=== PATIENT | male | born 1960 | race Two or more races ===

== ENCOUNTER 2019-07-19 22:19 | Emergency (ER) | payer BC, OTHER ==
[~2019-07-19] VITALS: Ht 167.6 cm; Wt 66.3 kg
[~2019-07-19 22:19] MED LIST: ABIR250T PO; ALBU90AE PO; AMLO2.5T5 PO; ASPI-650 PO; DENO120V SQ; FURO-92 PO; HYDR4TAB48 PO; LISI-170 PO; MAGN300C PO; METF-649 PO; METO25TA2 PO; OMEP-110 PO; POTA99TA24 PO; PRED5TAB PO; ROSU5TAB PO; SIMV40TA3 PO; SITA100T PO
[2019-07-19 22:21] VITALS: BP 150/85
[2019-07-19] MEDS ORDERED: OXYcodone/APAP 5/325MG TABLET ONE ×2 (22:45→23:27)
--- NOTE | 2019-07-19 22:47 | NUR ---
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
[2019-07-19] MEDS ORDERED: BUPIVACAINE 0.25% ONE (22:57)
[2019-07-19] MEDS ORDERED: LIDOCAINE-MPF 1%, 5ML ONE (22:57)
--- NOTE | 2019-07-19 22:58 | NUR ---
MEDS PULLED FOR PROVIDER ADMIN
[2019-07-19] MEDS ORDERED: OXYcodone/APAP 5/325MG TABLET PO ONE ×2 (23:00→23:30)
[2019-07-19] MEDS ORDERED: LIDOCAINE 1%, 10ML INFIL ONE (23:00)
[2019-07-19] MEDS ORDERED: BUPIVACAINE 0.25% INFIL ONE (23:00)
[2019-07-19] MEDS ORDERED: LIDOCAINE-MPF 1%, 5ML INFIL ONE (23:30)
== END 2019-07-19 23:40 | disposition home or self-care (01) ==
LOC: ED 23:34
DX: K08.89 Other specified disorders of teeth and supporting structures (principal)
CPT/HCPCS: 64999; 99284